=== PATIENT | female | born 1995 | race Two or more races ===

== ENCOUNTER 2017-05-14 23:29 | Emergency (ER) | payer OTHER ==
[~2017-05-14] VITALS: Ht 147.3 cm; Wt 72.6 kg
== END 2017-05-15 05:59 | disposition home or self-care (01) ==
LOC: ER 23:29
DX: O20.8 Other hemorrhage in early pregnancy (principal); Z34.01 Encounter for supervision of normal first pregnancy, first trimester

== ENCOUNTER 2017-09-18 03:51 | Inpatient (IN) | payer OTHER ==
[~2017-09-18] VITALS: Ht 147.3 cm; Wt 79.4 kg
[2017-09-18] MEDS ORDERED: PRENATAL 19 TA1 EACH PO (15:43)
[2017-09-18] MEDS ORDERED: FOLIC ACID0.4 MG PO (15:44)
[2017-09-18] MEDS ORDERED: SYNTHROID50 MCG PO (21:38)
[2017-09-18] MEDS ORDERED: IRON325 MG PO (21:38)
[2017-09-18] MEDS ORDERED: NIFE60TA3 PO (21:39)
== END 2017-09-21 13:07 | DRG 775 ==
LOC: OBS/DEL 03:51 → LDR 05:07 → OB/GYN 05:07
PROC: BY4FZZZ Ultrasonography of Third Trimester, Single Fetus (ICD-10-PCS; 2017-09-18)
PROC: 4A1HXCZ Monitoring of Products of Conception, Cardiac Rate, External Approach (ICD-10-PCS; 2017-09-18)
PROC: 10E0XZZ Delivery of Products of Conception, External Approach (ICD-10-PCS; principal; 2017-09-19)
PROC: 10907ZC Drainage of Amniotic Fluid, Therapeutic from Products of Conception, Via Natural or Artificial Opening (ICD-10-PCS; 2017-09-19)
PROC: 4A033R1 Measurement of Arterial Saturation, Peripheral, Percutaneous Approach (ICD-10-PCS; 2017-09-19)
DX: O60.14X0 Preterm labor third trimester with preterm delivery third trimester, not applicable or unspecified (principal); O69.81X0 Labor and delivery complicated by cord around neck, without compression, not applicable or unspecified; Z3A.29 29 weeks gestation of pregnancy; Z37.0 Single live birth